=== PATIENT | female | born 1995 | race African-American/Black ===

== ENCOUNTER 2019-09-08 11:15 | Emergency (ER) | payer SELFPAY ==
[~2019-09-08] VITALS: Ht 165.1 cm; Wt 56.7 kg
[2019-09-08 12:02] VITALS: BP 116/57
[2019-09-08] MEDS ORDERED: cefTRIAXone SODIUM 250 MG VL IM ONE (12:15)
[2019-09-08] MEDS ORDERED: AZITHROMYCIN 250 MG TAB PO ONE (12:15)
== END 2019-09-08 12:57 | disposition home or self-care (01) ==
LOC: ER 11:15
DX: J45.20 Mild intermittent asthma, uncomplicated (principal); F17.210 Nicotine dependence, cigarettes, uncomplicated
CPT/HCPCS: 71046; 96372; 99283; J0696